=== PATIENT | female | born 1980 | race Caucasian/White ===

== ENCOUNTER 2020-02-08 19:03 | Emergency (ER) | payer OTHER ==
[~2020-02-08] VITALS: Ht 154.9 cm; Wt 65.8 kg
[2020-02-08 19:10] VITALS: BP 132/88
--- NOTE | 2020-02-08 19:19 | NUR ---
pt to room from lobby
== END 2020-02-08 21:05 | disposition home or self-care (01) ==
LOC: ED 19:30
DX: S60.211A Contusion of right wrist, initial encounter (principal); W22.8XXA Striking against or struck by other objects, initial encounter; Y93.89 Activity, other specified; Y92.69 Other specified industrial and construction area as the place of occurrence of the external cause; Y99.0 Civilian activity done for income or pay
CPT/HCPCS: 99283